=== PATIENT | male | born 1965 | race Caucasian/White ===

== ENCOUNTER → 2016-06-09 | Outpatient (CLI) | payer BC, OTHER ==
[~2016-06-09] MED LIST: AMLODIPINE BESY1 CA3 PO; ASPIRIN81 M1 PO; CIALIS5 MG PO; CIPRO500 MG PO; FARXIGA5 M1 PO; FISH OIL CONC1000 M1 PO; GLIMEPIRIDE1 MG; HYCODAN/HYDROMET5 ML PO; LEVOFLOXACIN500 MG PO; LIPITOR40 MG PO; METFORMIN1000 MG PO; PRAVACHOL80 M1 GT; PROVENTIL0.09 MG/AC IH; TRIGLIDE160 MG PO; VICODIN 5/500 505 MG PO; ZITHROMAX Z PA250 MG PO; [UNRECOGNIZED DRUG - CODE] PO
== END | disposition home or self-care (01) ==
LOC: CT 08:47
DX: N20.0 Calculus of kidney (principal); R31.29 Other microscopic hematuria

== ENCOUNTER 2016-12-04 22:17 | Emergency (ER) | payer OTHER, BC ==
[~2016-12-04] VITALS: Ht 175.2 cm; Wt 88.0 kg
[2016-12-04] MEDS ORDERED: HYDROCODONE BIT1 T11 PO (23:28)
[2016-12-04] MEDS ORDERED: NAPROSYN500 MG PO (23:28)
== END 2016-12-05 00:12 | disposition home or self-care (01) ==
LOC: ED 22:17
DX: S89.92XA Unspecified injury of left lower leg, initial encounter (principal); F17.200 Nicotine dependence, unspecified, uncomplicated; Z79.82 Long term (current) use of aspirin; Z79.899 Other long term (current) drug therapy; X58.XXXA Exposure to other specified factors, initial encounter; Y93.89 Activity, other specified; Y92.89 Other specified places as the place of occurrence of the external cause; Y99.8 Other external cause status

== ENCOUNTER → 2018-09-03 | Day surgery (SDC) | payer BC ==
[~2018-09-03] VITALS: Ht 175.2 cm; Wt 86.2 kg
[~2018-09-03] MED LIST changes: +CHANTIX1 M1 PO; +HYDROCODONE BIT1 T11 PO; +JARDIANCE25 MG PO; +NAPROSYN500 MG PO; +NEXIUM40 MG PO; +OZEMPIC1 MG/0.75 SQ; +RANITIDINE HCL150 M1 PO; +ROSUVASTATIN CA40 MG PO
--- NOTE | ~2018-09-03 | O ---
[place], [place] OPERATIVE NOTE NAME: ENRIKE ZAMORANO UNIT #: [id number] ROOM: DOCTOR: SUDARSHAN MILLER MD BIRTHDATE: [birth year] DOS: 09/03/2018 IMPRESSION: A 53-year-old patient who has presented with a chief complaint of dyspepsia and epigastric distress. INDICATION FOR PROCEDURE: The patient has been on H2 blockers that has not been helpful. ALLERGIES: No known medication. FAMILY HISTORY: Noncontributory. PAST SURGICAL HISTORY: Left eye, vasectomy. PAST MEDICAL HISTORY: Hypercholesterolemia, diabetes mellitus, hypertension, and hyperlipidemia. SOCIAL HISTORY: Smoker. Social alcohol consumer. PROCEDURE: Today's procedure part of investigation is panendoscopy plus biopsy. PREMEDICATION: Propofol. SCOPE: Olympus forward-viewing gastroscope Q10 video. REPORT: After putting the patient in left lateral position and application of lubricant to the scope, the scope was introduced. Thereafter, under direct visualization, advanced through the length of esophagus without difficulty. A 2.5 cm hiatal hernia was noticed. Gastric pouch was entered. Gastritis seen thus moderate degree antral biopsy obtained for H. pylori. Duodenal bulb, second and third part within normal limits. GI reflexion of the scope reveals cardia to be benign. Air was suctioned out. The patient was extubated and tolerated the procedure well. 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 PLAN AND DISCUSSION: I am going to start this patient on Nexium 40 mg daily. Elevation of the head of the bed 10 inches all time. Gaviscon as antacid of choice. Follow up routinely with you in office and visit with us in 2 weeks in GI clinic. [place], [place] OPERATIVE NOTE NAME: ENRIKE ZAMORANO UNIT #: [id number] ROOM: DOCTOR: SUDARSHAN MILLER MD BIRTHDATE: [birth year] SUDARSHAN MILLER MD CM:OPRECORD:OPERATIVE NOTE [id number] SUDARSHAN MILLER MD 09/17/18 1342 interface
[2018-09-03 09:00] VITALS: BP 133/79
[2018-09-03 10:32] VITALS: BP 121/98
[2018-09-03 10:43] VITALS: BP 116/82
[2018-09-03 10:57] VITALS: BP 112/76
== END | disposition home or self-care (01) ==
LOC: SDC 08-29 12:30
DX: K29.50 Unspecified chronic gastritis without bleeding (principal); K44.9 Diaphragmatic hernia without obstruction or gangrene; E78.00 Pure hypercholesterolemia, unspecified; E11.9 Type 2 diabetes mellitus without complications; G47.30 Sleep apnea, unspecified; I10 Essential (primary) hypertension; F17.210 Nicotine dependence, cigarettes, uncomplicated; Z98.52 Vasectomy status; Z98.890 Other specified postprocedural states; Z72.89 Other problems related to lifestyle; Z79.84 Long term (current) use of oral hypoglycemic drugs; Z79.899 Other long term (current) drug therapy